=== PATIENT | female | born 2000 | race Caucasian/White ===

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

== ENCOUNTER 2021-04-30 18:44 | Emergency (ER) | payer OTHER ==
[2021-04-30 19:32] LABS: BASO # 0.01 (0.02-0.10); EOS # 0.03 (0.04-0.40); EOS % 0.4 % (0.1-4.0); HEMATOCRIT 40.4 % (35.0-45.0); HEMOGLOBIN 14.1 g/dL (12.0-15.0); LYMPH# 0.73 (1.20-3.40); MEAN CELL VOLUME 94 fl (78-95); MEAN CORPUSCULAR HEMOGLOBIN 33 pg (26-32); MEAN CORPUSCULAR HGB CONC 35 g/dL (33-37); MEAN PLATELET VOLUME 8.7 fl (7.4-10.4); MONO # 0.58 (0.10-0.60); NEU # 7.13 (1.40-6.50); PLATELET COUNT 210 K/mm3 (130-400); RED BLOOD COUNT 4.32 M/mm3 (4.10-5.30); WHITE BLOOD COUNT 8.5 K/mm3 (4.8-10.8)
[2021-04-30 19:42] LABS: ALBUMIN 4.3 g/dL (3.5-5.0); POTASSIUM 4.1 mmol/L (3.5-5.1); SODIUM 142 mmol/L (136-145)
[2021-04-30 19:43] LABS: CALCIUM 8.9 mg/dL (8.3-10.5)
[2021-04-30 19:45] LABS: GLUCOSE 94 mg/dL (65-105); TOTAL PROTEIN 7.3 g/dL (6.4-8.3)
[2021-04-30 19:46] LABS: CARBON DIOXIDE 22 mmol/L (22-29); TOTAL BILIRUBIN 1.3 mg/dL (0.2-1.2)
[2021-04-30 19:50] LABS: AST-SGOT 19 U/L (5-34)
[2021-04-30 19:51] LABS: ALT/SGPT 33 U/L (0-55)
[2021-04-30 19:52] LABS: LIPASE 11 U/L (8-78)
[2021-04-30 19:59] LABS: TROPONIN-I < 0.03 ng/mL (<0.030)
[2021-04-30 20:46] LABS: URINE APPEARANCE CLOUDY; URINE COLOR YELLOW
[2021-04-30 20:47] LABS: URINE BILIRUBIN 1+ (NEGATIVE); URINE BLOOD NEGATIVE (NEGATIVE); URINE GLUCOSE NEGATIVE (NEGATIVE); URINE KETONE 2+ (NEGATIVE); URINE LEUKOCYTE ESTERASE NEGATIVE (NEGATIVE); URINE NITRATE NEGATIVE (NEGATIVE); URINE PROTEIN(semi-quant) TRACE mg/dL (NEGATIVE); URINE UROBILINOGEN 1 mg/dL (NORMAL)
[2021-04-30 20:48] LABS: URINE MUCUS PRESENT (NOT PRESENT)
[2021-04-30 21:33] VITALS: BP 106/64
== END 2021-04-30 21:36 | disposition home or self-care (01) ==
LOC: ED 18:44
PROVIDERS: Nurse Practitioner Family
DX: R11.2 Nausea with vomiting, unspecified (principal); R10.13 Epigastric pain; Z32.02 Encounter for pregnancy test, result negative
CPT/HCPCS: J1885; J2405; J3490; J7030

== ENCOUNTER → 2021-05-08 | Outpatient (CLI) | payer OTHER ==
[2021-04-30 21:33] VITALS: BP 106/64
== END ==
LOC: RAD 07:15
DX: R10.13 Epigastric pain (principal)